=== PATIENT | female | born 1950 | race Hispanic/Latino ===

== ENCOUNTER 2021-06-17 16:02 | Inpatient (IN) | payer MEDICARE, OTHER ==
[~2021-06-17] VITALS: Ht 167.6 cm; Wt 73.5 kg
[~2021-06-17 16:02] MED LIST: ATORVASTATIN CA20 MG PO; GLIMEPIRIDE2 MG PO; METFORMIN HCL500 MG PO; VITAMIN D2400 UNIT PO
[2021-06-17 16:38] LABS: BASOPHILS % 0.5 % (0.0-1.0); EOSINOPHILS # (AUTO) 0.2 (0.0-0.4); EOSINOPHILS % 3.7 % (0.0-6.0); HEMATOCRIT 31.5 % (34.2-44.1); HEMOGLOBIN 10.2 g/dL (12.0-16.0); LYMPHOCYTES # (AUTO) 1.6 (1.0-3.2); LYMPHOCYTES % 25.5 % (18.0-39.1); MEAN CORPUSCULAR HEMOGLOBIN 30.5 pg (28-32); MEAN CORPUSCULAR HGB CONC 32.4 g/dL (31-35); MEAN CORPUSCULAR VOLUME 94.3 fL (81-99); MONOCYTES # (AUTO) 0.4 (0.2-0.8); MONOCYTES % 5.6 % (4.4-11.3); NEUTROPHILS # (AUTO) 4.1 (2.1-6.9); NEUTROPHILS % 64.4 % (38.7-80.0); PLATELET COUNT 177 x10e3/uL (140-360); RED BLOOD COUNT 3.34 x10e6/uL (3.6-5.1); RED CELL DISTRIBUTION WIDTH 13.2 % (11.7-14.4)
[2021-06-17 16:48] LABS: INR 0.9
[2021-06-17 16:49] LABS: PARTIAL THROMBOPLASTIN TIME 32.9 seconds (23.8-35.5)
[2021-06-17 16:55] LABS: ALANINE AMINOTRANSFERASE 23 IU/L (0-55); ALBUMIN 3.3 g/dL (3.5-5.0); ALBUMIN/GLOBULIN RATIO 0.9 (0.8-2.0); ALKALINE PHOSPHATASE 97 IU/L (40-150); ANION GAP 13.4 mmol/L (8-16); BLOOD UREA NITROGEN 21 mg/dL (7-26); BUN/CREATININE RATIO 25 (6-25); CALCIUM 8.2 mg/dL (8.4-10.2); CARBON DIOXIDE 23 mmol/L (22-29); CHLORIDE 107 mmol/L (98-107); CREATINE KINASE 646 IU/L (29-168); CREATININE, SERUM 0.84 mg/dL (0.57-1.11); EST GLOMERULAR FILTRATION RATE 67 ML/MIN (60-); GLUCOSE 219 mg/dL (74-118); POTASSIUM 4.4 mmol/L (3.5-5.1); SODIUM 139 mmol/L (136-145)
[2021-06-17] MEDS ORDERED: IOPAMIDOL 370 MG/ML 100 ML INFUS..BTL INJ ONE (18:05)
[2021-06-17] MEDS ORDERED: Morphine 4mg Syringe 4 MG/ML INJ IV PRN (18:15)
[2021-06-17] MEDS ORDERED: ONDANSETRON HCL INJ 2MG/ML 2ML 2 MG/ML VIAL IV PRN (18:15)
[2021-06-17] MEDS: SODIUM CHLORIDE 0.9% 1000ML 1,000 ML IV SCH (19:04)
[2021-06-17 20:20] VITALS: BP 131/69
[2021-06-17] MEDS ORDERED: CRESTOR10 MG PO (22:42)
[2021-06-17] MEDS ORDERED: LEVOTHYROXINE88 MC1 (22:42)
[2021-06-17] MEDS ORDERED: TRADJENTA5 MG (22:42)
[2021-06-17] MEDS ORDERED: JARDIANCE25 MG (22:42)
[2021-06-17] MEDS ORDERED: TRESIBA100 UNIT/1 (22:42)
[2021-06-17] MEDS ORDERED: SERTRALINE HCL50 MG PO (22:42)
[2021-06-18] VITALS (8 sets, daily range): BP systolic 118–122; BP diastolic 56–74
[2021-06-18] MEDS: SODIUM CHLORIDE 0.9% 1000ML 1,000 ML IV SCH ×4 (03:16→20:47)
[2021-06-18 05:07] LABS: BASOPHILS % 0.4 % (0.0-1.0); EOSINOPHILS # (AUTO) 0.2 (0.0-0.4); EOSINOPHILS % 5.1 % (0.0-6.0); HEMATOCRIT 26.1 % (34.2-44.1); HEMOGLOBIN 8.5 g/dL (12.0-16.0); LYMPHOCYTES # (AUTO) 1.6 (1.0-3.2); LYMPHOCYTES % 35.2 % (18.0-39.1); MEAN CORPUSCULAR HEMOGLOBIN 30.9 pg (28-32); MEAN CORPUSCULAR HGB CONC 32.6 g/dL (31-35); MEAN CORPUSCULAR VOLUME 94.9 fL (81-99); MONOCYTES # (AUTO) 0.3 (0.2-0.8); MONOCYTES % 6.2 % (4.4-11.3); NEUTROPHILS # (AUTO) 2.4 (2.1-6.9); NEUTROPHILS % 52.7 % (38.7-80.0); PLATELET COUNT 129 x10e3/uL (140-360); RED BLOOD COUNT 2.75 x10e6/uL (3.6-5.1); RED CELL DISTRIBUTION WIDTH 13.2 % (11.7-14.4)
[2021-06-18 05:45] LABS: ALBUMIN 2.6 g/dL (3.5-5.0); ALBUMIN/GLOBULIN RATIO 1.1 (0.8-2.0); ANION GAP 7.2 mmol/L (8-16); CALCIUM 7.6 mg/dL (8.4-10.2); CREATININE, SERUM 0.8 mg/dL (0.57-1.11); POTASSIUM 4.2 mmol/L (3.5-5.1)
[2021-06-18] MEDS: LEVOTHYROXINE SODIUM 88 MCG TAB PO SCH (06:38)
[2021-06-18] MEDS: GLIMEPIRIDE 2 MG TAB PO SCH (09:00)
[2021-06-18] MEDS: SERTRALINE HCL 50 MG TAB PO SCH (09:00)
[2021-06-18] MEDS ORDERED: ENOXAPARIN SOD INJ 40 MG/0.4 ML SYR SC SCH (17:00)
[2021-06-18] MEDS ORDERED: METOPROLOL SUCCINATE 25 MG TAB XL PO SCH (18:15)
[2021-06-18] MEDS: METOPROLOL SUCCINATE 25 MG TAB XL PO SCH (20:47)
[2021-06-18] MEDS: CRESTOR 10MG PO SCH (20:47)
[2021-06-19] MEDS: ACETAMINOPHEN 325 MG TAB PO PRN ×2 (00:16→21:33)
[2021-06-19 00:44] VITALS: BP 124/71
[2021-06-19 04:00] VITALS: BP 123/69
[2021-06-19] MEDS: SODIUM CHLORIDE 0.9% 1000ML 1,000 ML IV SCH (05:18)
[2021-06-19 05:21] LABS: ANION GAP 11.3 mmol/L (8-16); CALCIUM 7.2 mg/dL (8.4-10.2); CREATININE, SERUM 0.69 mg/dL (0.57-1.11); POTASSIUM 4.3 mmol/L (3.5-5.1)
[2021-06-19 05:38] LABS: BASOPHILS % 0.4 % (0.0-1.0); EOSINOPHILS # (AUTO) 0.3 (0.0-0.4); EOSINOPHILS % 5.4 % (0.0-6.0); HEMATOCRIT 25.9 % (34.2-44.1); HEMOGLOBIN 8.3 g/dL (12.0-16.0); LYMPHOCYTES # (AUTO) 1.7 (1.0-3.2); MEAN CORPUSCULAR HEMOGLOBIN 30.4 pg (28-32); MEAN CORPUSCULAR VOLUME 94.9 fL (81-99); MONOCYTES # (AUTO) 0.3 (0.2-0.8); MONOCYTES % 7.1 % (4.4-11.3); NEUTROPHILS # (AUTO) 2.3 (2.1-6.9); NEUTROPHILS % 49.5 % (38.7-80.0); PLATELET COUNT 134 x10e3/uL (140-360); RED BLOOD COUNT 2.73 x10e6/uL (3.6-5.1); RED CELL DISTRIBUTION WIDTH 13.1 % (11.7-14.4)
[2021-06-19] MEDS: LEVOTHYROXINE SODIUM 88 MCG TAB PO SCH (06:52)
[2021-06-19 07:52] VITALS: BP 126/70
[2021-06-19] MEDS: GLIMEPIRIDE 2 MG TAB PO SCH (08:00)
[2021-06-19] MEDS: SERTRALINE HCL 50 MG TAB PO SCH (09:00)
[2021-06-19] MEDS: METOPROLOL SUCCINATE 25 MG TAB XL PO SCH (09:00)
[2021-06-19 11:52] VITALS: BP 143/71
[2021-06-19] MEDS ORDERED: LACTULOSE SYRUP 20 GM/30 ML UDC PO PRN (12:15)
[2021-06-19] MEDS ORDERED: DEXTROSE 50% SYRINGE 50 ML IV PRN (12:15)
[2021-06-19 15:43] VITALS: BP 137/68
[2021-06-19] MEDS: INSULIN LISPRO 100 UNIT/1 ML 3ML VIAL SQ SCH ×2 (17:30→21:23)
[2021-06-19 18:40] LABS: COLOR,URINE YELLOW (YELLOW)
[2021-06-19 18:41] LABS: CLARITY,URINE HAZY (CLEAR); KETONES,URINE NEGATIVE (NEGATIVE); LEUKOCYTE ESTERASE ,URINE NEGATIVE (NEGATIVE); NITRITE,URINE NEGATIVE (NEGATIVE); PROTEIN,URINE DIPSTICK NEGATIVE (NEGATIVE); URINE UROBILINOGEN 1 mg/dL (0.2 - 1)
[2021-06-19 18:42] LABS: BACTERIA,URINE FEW /HPF; EPITHELIAL CELLS,URINE FEW /LPF; RBC,URINE 0-5 /HPF (0-5); WBC,URINE (MAN) 0-5 /HPF (0-5)
[2021-06-19 20:00] VITALS: BP 139/77
[2021-06-19] MEDS: ENOXAPARIN 30 MG/0.3 ML SYR SC SCH (21:24)
[2021-06-19] MEDS: CRESTOR 10MG PO SCH (21:24)
[2021-06-20] VITALS (8 sets, daily range): BP systolic 120–139; BP diastolic 65–75
[2021-06-20] MEDS: ACETAMINOPHEN 325 MG TAB PO PRN ×2 (04:27→22:22)
[2021-06-20] MEDS: LEVOTHYROXINE SODIUM 88 MCG TAB PO SCH (05:14)
[2021-06-20] MEDS: INSULIN LISPRO 100 UNIT/1 ML 3ML VIAL SQ SCH ×4 (07:30→21:00)
[2021-06-20] MEDS: METOPROLOL SUCCINATE 25 MG TAB XL PO SCH (08:38)
[2021-06-20] MEDS: ENOXAPARIN 30 MG/0.3 ML SYR SC SCH ×2 (08:38→21:00)
[2021-06-20] MEDS: GLIMEPIRIDE 2 MG TAB PO SCH (08:39)
[2021-06-20] MEDS: SERTRALINE HCL 50 MG TAB PO SCH (08:40)
[2021-06-20] MEDS: CRESTOR 10MG PO SCH (22:16)
[2021-06-20] MEDS: SODIUM CHLORIDE 0.9% 1000ML 1,000 ML IV SCH (23:52)
[2021-06-21] VITALS (8 sets, daily range): BP systolic 116–136; BP diastolic 60–72
[2021-06-21] MEDS: LEVOTHYROXINE SODIUM 88 MCG TAB PO SCH (04:38)
[2021-06-21] MEDS: INSULIN LISPRO 100 UNIT/1 ML 3ML VIAL SQ SCH ×4 (07:30→20:39)
[2021-06-21] MEDS: ENOXAPARIN 30 MG/0.3 ML SYR SC SCH ×2 (07:59→20:39)
[2021-06-21] MEDS: GLIMEPIRIDE 2 MG TAB PO SCH (08:00)
[2021-06-21] MEDS: METOPROLOL SUCCINATE 25 MG TAB XL PO SCH (09:00)
[2021-06-21] MEDS: SERTRALINE HCL 50 MG TAB PO SCH (09:00)
[2021-06-21] MEDS: SODIUM CHLORIDE 0.9% 1000ML 1,000 ML IV SCH ×3 (10:00→23:56)
[2021-06-21] MEDS ORDERED: MIDAZOLAM HCL 2 MG/2 ML VIAL ONE (12:18)
[2021-06-21] MEDS ORDERED: FENTANYL CITRATE/PF 100MCG/2 ML INJ ONE (12:18)
[2021-06-21] MEDS ORDERED: HYDROMORPHONE 1MG/1ML INJ ONE (14:52)
[2021-06-21] MEDS ORDERED: LIDOCAINE HCL 2% LOCAL INJ 5 ML SDV VIAL INJ ONE (16:02)
[2021-06-21] MEDS ORDERED: ONDANSETRON HCL INJ 2MG/ML 2ML 2 MG/ML VIAL ONE (16:02)
[2021-06-21] MEDS ORDERED: NEOSTIGMINE 1 MG/ML 10ML VIAL ONE (16:02)
[2021-06-21] MEDS ORDERED: SEVOFLURANE INHAL SOLN 250 ML PEN BTL ONE (16:02)
[2021-06-21] MEDS ORDERED: PROPOFOL IV EMULSION 10 MG/ML 20 ML VIAL ONE (16:02)
[2021-06-21] MEDS ORDERED: ACETAMINOPHEN 1000 MG/100 ML IV ONE (16:02)
[2021-06-21] MEDS ORDERED: GLYCOPYRROLATE INJ 0.2 MG/ML VIAL ONE (16:02)
[2021-06-21] MEDS ORDERED: ROCURONIUM BROMIDE 10 MG/ML 5ML VIAL IV ONE (16:02)
[2021-06-21] MEDS ORDERED: POVIDONE IODINE 0.05% 0.05 % ML PO ONE (16:02)
[2021-06-21] MEDS ORDERED: DEXAMETHASONE SOD PHOS INJ 4 MG/ML SDV ONE (16:02)
[2021-06-21] MEDS ORDERED: PHENYLEPHRINE HCL 1% 10 MG/ML VIAL ONE (16:02)
[2021-06-21] MEDS ORDERED: NALOXONE HCL INJ 0.4 MG/ML AMP IV PRN (17:30)
[2021-06-21] MEDS ORDERED: HYDROMORPHONE 0.2MG/ML-SOD CHL 30ML PCA SYRINGE IV PRN (17:30)
[2021-06-21] MEDS ORDERED: ONDANSETRON HCL INJ 2MG/ML 2ML 2 MG/ML VIAL IV PRN (17:30)
[2021-06-21] MEDS ORDERED: ACETAMINOPHEN 1000 MG/100 ML IV PRN (17:30)
[2021-06-21] MEDS: CRESTOR 10MG PO SCH (20:39)
[2021-06-22] VITALS (7 sets, daily range): BP systolic 103–118; BP diastolic 57–63
[2021-06-22] MEDS: LEVOTHYROXINE SODIUM 88 MCG TAB PO SCH (05:37)
[2021-06-22] MEDS ORDERED: CEPACOL SORE THROAT LOZENGES PO PRN (05:45)
[2021-06-22] MEDS: INSULIN LISPRO 100 UNIT/1 ML 3ML VIAL SQ SCH ×4 (07:30→21:09)
[2021-06-22 07:44] LABS: BASOPHILS % 0.3 % (0.0-1.0); EOSINOPHILS % 0.1 % (0.0-6.0); HEMATOCRIT 26.9 % (34.2-44.1); HEMOGLOBIN 8.5 g/dL (12.0-16.0); LYMPHOCYTES % 13.9 % (18.0-39.1); MEAN CORPUSCULAR HEMOGLOBIN 30.6 pg (28-32); MEAN CORPUSCULAR HGB CONC 31.6 g/dL (31-35); MEAN CORPUSCULAR VOLUME 96.8 fL (81-99); MONOCYTES # (AUTO) 0.5 (0.2-0.8); MONOCYTES % 6.8 % (4.4-11.3); NEUTROPHILS # (AUTO) 5.8 (2.1-6.9); NEUTROPHILS % 78.5 % (38.7-80.0); PLATELET COUNT 217 x10e3/uL (140-360); RED BLOOD COUNT 2.78 x10e6/uL (3.6-5.1); RED CELL DISTRIBUTION WIDTH 13.5 % (11.7-14.4)
[2021-06-22 07:58] LABS: ANION GAP 9.9 mmol/L (8-16); CALCIUM 7.5 mg/dL (8.4-10.2); CREATININE, SERUM 0.74 mg/dL (0.57-1.11); POTASSIUM 3.9 mmol/L (3.5-5.1)
[2021-06-22] MEDS: METOPROLOL SUCCINATE 25 MG TAB XL PO SCH (08:15)
[2021-06-22] MEDS: GLIMEPIRIDE 2 MG TAB PO SCH (08:25)
[2021-06-22] MEDS: RIVAROXABAN 10 MG TABLET PO SCH (08:25)
[2021-06-22] MEDS: SERTRALINE HCL 50 MG TAB PO SCH (08:25)
[2021-06-22] MEDS: SODIUM CHLORIDE 0.9% 1000ML 1,000 ML IV SCH ×2 (17:01→22:30)
[2021-06-22] MEDS: CRESTOR 10MG PO SCH (21:02)
[2021-06-23] VITALS (7 sets, daily range): BP systolic 114–133; BP diastolic 62–73
[2021-06-23] MEDS: LEVOTHYROXINE SODIUM 88 MCG TAB PO SCH (06:15)
[2021-06-23] MEDS: INSULIN LISPRO 100 UNIT/1 ML 3ML VIAL SQ SCH ×4 (07:30→21:00)
[2021-06-23] MEDS: SODIUM CHLORIDE 0.9% 1000ML 1,000 ML IV SCH (07:50)
[2021-06-23] MEDS: RIVAROXABAN 10 MG TABLET PO SCH (09:00)
[2021-06-23] MEDS: GLIMEPIRIDE 2 MG TAB PO SCH (10:08)
[2021-06-23] MEDS: METOPROLOL SUCCINATE 25 MG TAB XL PO SCH (10:09)
[2021-06-23] MEDS: SERTRALINE HCL 50 MG TAB PO SCH (10:10)
[2021-06-23] MEDS ORDERED: HYDROCODONE/APAP 5MG-325MG TAB PO PRN (14:15)
[2021-06-23] MEDS: HYDROCODONE/APAP 5MG-325MG TAB PO PRN (17:13)
[2021-06-23] MEDS: CRESTOR 10MG PO SCH (20:34)
[2021-06-23] MEDS: ACETAMINOPHEN 325 MG TAB PO PRN (20:35)
[2021-06-24] VITALS (8 sets, daily range): BP systolic 120–143; BP diastolic 63–85
[2021-06-24] MEDS: ACETAMINOPHEN 325 MG TAB PO PRN (03:23)
[2021-06-24] MEDS: LEVOTHYROXINE SODIUM 88 MCG TAB PO SCH (05:24)
[2021-06-24] MEDS: INSULIN LISPRO 100 UNIT/1 ML 3ML VIAL SQ SCH ×4 (07:30→20:44)
[2021-06-24] MEDS: RIVAROXABAN 10 MG TABLET PO SCH (09:58)
[2021-06-24] MEDS: GLIMEPIRIDE 2 MG TAB PO SCH (09:58)
[2021-06-24] MEDS: METOPROLOL SUCCINATE 25 MG TAB XL PO SCH (09:59)
[2021-06-24] MEDS: SERTRALINE HCL 50 MG TAB PO SCH (10:03)
[2021-06-24] MEDS ORDERED: ONDANSETRON HCL 4 MG ORAL DISINTEGRATING TAB PO PRN (11:15)
[2021-06-24] MEDS: CRESTOR 10MG PO SCH (20:43)
[2021-06-24] MEDS: HYDROCODONE/APAP 5MG-325MG TAB PO PRN (21:05)
[2021-06-25 05:35] VITALS: BP 143/69
[2021-06-25] MEDS: LEVOTHYROXINE SODIUM 88 MCG TAB PO SCH (06:00)
[2021-06-25 06:26] LABS: BASOPHILS % 0.6 % (0.0-1.0); EOSINOPHILS # (AUTO) 0.2 (0.0-0.4); EOSINOPHILS % 4.5 % (0.0-6.0); HEMATOCRIT 24.7 % (34.2-44.1); LYMPHOCYTES # (AUTO) 1.6 (1.0-3.2); LYMPHOCYTES % 30.5 % (18.0-39.1); MEAN CORPUSCULAR HEMOGLOBIN 30.7 pg (28-32); MEAN CORPUSCULAR HGB CONC 32.4 g/dL (31-35); MEAN CORPUSCULAR VOLUME 94.6 fL (81-99); MONOCYTES # (AUTO) 0.4 (0.2-0.8); MONOCYTES % 7.6 % (4.4-11.3); NEUTROPHILS % 56.4 % (38.7-80.0); PLATELET COUNT 250 x10e3/uL (140-360); RED BLOOD COUNT 2.61 x10e6/uL (3.6-5.1)
[2021-06-25 06:56] LABS: ANION GAP 12.6 mmol/L (8-16); CALCIUM 7.7 mg/dL (8.4-10.2); CREATININE, SERUM 0.6 mg/dL (0.57-1.11); POTASSIUM 3.6 mmol/L (3.5-5.1)
[2021-06-25 08:00] VITALS: BP 133/70
[2021-06-25 08:02] VITALS: BP 133/70
[2021-06-25] MEDS: GLIMEPIRIDE 2 MG TAB PO SCH (08:45)
[2021-06-25] MEDS: INSULIN LISPRO 100 UNIT/1 ML 3ML VIAL SQ SCH ×2 (08:45→11:55)
[2021-06-25] MEDS: RIVAROXABAN 10 MG TABLET PO SCH (08:45)
[2021-06-25] MEDS: SERTRALINE HCL 50 MG TAB PO SCH (08:46)
[2021-06-25] MEDS: METOPROLOL SUCCINATE 25 MG TAB XL PO SCH (08:47)
[2021-06-25] MEDS ORDERED: HYDROCODON-ACE1 EA11 PO (09:01)
[2021-06-25 11:24] VITALS: BP 127/66
== END 2021-06-25 14:30 | disposition home or self-care (01) | DRG 494 ==
LOC: ER 16:15 → ERHOLD 18:12 → MED/SURG 20:35
PROVIDERS: ADMIT Internal Medicine; ATTEND Internal Medicine
PROC: 0QSH34Z Reposition Left Tibia with Internal Fixation Device, Percutaneous Approach (ICD-10-PCS; 2021-06-21)
PROC: 0PSK04Z Reposition Right Ulna with Internal Fixation Device, Open Approach (ICD-10-PCS; principal; 2021-06-21 12:56)
PROC: 0QSH36Z Reposition Left Tibia with Intramedullary Internal Fixation Device, Percutaneous Approach (ICD-10-PCS; 2021-06-21 12:56)
DX: S52.601A Unspecified fracture of lower end of right ulna, initial encounter for closed fracture (principal); V48.0XXA Car driver injured in noncollision transport accident in nontraffic accident, initial encounter; Y93.89 Activity, other specified; Y92.488 Other paved roadways as the place of occurrence of the external cause; D64.9 Anemia, unspecified; S82.52XA Displaced fracture of medial malleolus of left tibia, initial encounter for closed fracture; S82.62XA Displaced fracture of lateral malleolus of left fibula, initial encounter for closed fracture; E78.5 Hyperlipidemia, unspecified; Z20.822 Contact with and (suspected) exposure to COVID-19; E11.65 Type 2 diabetes mellitus with hyperglycemia; R94.4 Abnormal results of kidney function studies; E03.9 Hypothyroidism, unspecified; Z79.4 Long term (current) use of insulin; Z79.899 Other long term (current) drug therapy
CPT/HCPCS: 36415; 70450; 71260; 72125; 72170; 74177; 76000; 80048; 80053; 81001; 82550; 82553; 82948; 84484; 85025; 85610; 85730; 86850; 86900; 93005; 93306; 93971; 94799; 97139; 99251; 99284; C1713; J0690; J1100; J1170; J1650; J2001; J2250; J2270; J2370; J2405; J2710; J3010; J7030; Q9967; U0002